=== PATIENT | male | born 1950 ===

== ENCOUNTER 2018-04-17 09:56 | Outpatient (CLI) | payer OTHER ==
[~2018-04-17 09:56] MED LIST: CADUET 10 MG/101 TAB; PROTONIX20 MG
== END 2018-04-17 10:07 | disposition home or self-care (01) ==
LOC: RAD 09:56
DX: I10 Essential (primary) hypertension (principal)

== ENCOUNTER 2019-02-10 10:22 | Outpatient (CLI) | payer OTHER | END 2019-02-10 10:42 | disposition home or self-care (01) | LOC: RAD 501 10:22 | DX: M51.16 Intervertebral disc disorders with radiculopathy, lumbar region (principal) ==

== ENCOUNTER 2024-11-06 09:57 | Outpatient (CLI) | payer OTHER | END 2024-11-06 10:02 | disposition home or self-care (01) | LOC: RAD 09:57 | PROVIDERS: ATTEND Internal Medicine Cardiovascular Disease | DX: J44.9 Chronic obstructive pulmonary disease, unspecified (principal); J11.1 Influenza due to unidentified influenza virus with other respiratory manifestations ==